=== PATIENT | male | born 1985 ===

== ENCOUNTER 2018-06-16 17:21 | Emergency (ER) | payer BC, OTHER ==
[2018-06-16 17:31] VITALS: BP 135/74
--- NOTE | 2018-06-16 17:43 | Emergency Department Report ---
Chief Complaint: Sore Throat Stated Complaint: POSSIBLE STREP Time Seen by Provider: 06/16/18 17:30 - HPI History of Present Illness: This is a 33 y.o. male that presents with sore throat for 1 week. Reports pain worse with swallowing or eating. He was going to PCP on Friday but reports pain is unbearable. He is using lozegens with no improvement of symptoms. He is able to hold liquids and food. Denies fever, cough, chest pain, or difficulty swallowing. - Exam Vital Signs: Vital Signs 06/16/18 17:30 Temperature 98.1 F Pulse Rate 94 H Respiratory 18 Rate Blood Pressure 135/74 O2 Sat by Pulse 98 Oximetry Physical Exam: GENERAL: The patient is well looking, in no acute distress. HEENT: Atraumatic and normocephalic. Pupils are equal, round, reactive to light, and accommodation. Extraocular movements are intact. There is no icterus, cyanosis, or pallor of the conjunctivae. Tympanic membranes normal bilaterally. Nasal turbinates are clear without exudates. Sinuses nontender to percussion. Posterior pharynx is erythematous. Uvula midline, no exudates are noted, and tonsils are not enlarged. CHEST: Air entry is adequate bilaterally with no rhonchi, and crackles. HEART: Sounds 1 and 2 are heard and are normal. Regular rate and rhythm, no tachycardic, murmurs, gallops, or rubs. ABDOMEN: Soft and nontender. Bowel sounds are present and normal. There is no hepatosplenomegaly. SKIN: Without rash. EXTREMITIES: Without edema, cyanosis, or clubbing. MSE screening note: Focused history and physical exam performed. Due to findings the following was ordered: ED Medical Decision Making - Lab Data Lab Results 06/16/18 Range/Units 17:21 Group A Strep Rapid Negative (Negative) - Medical Decision Making Patient was examined by me. Vitals are stable and in no acute distress. Rapid strep negative. Centor score 1 point. Findings are susceptible of acute pharyngitis. Start medrol dose pack and cephacol. Discharged home in stable condition. Discussed prevention options. F/U with PCP or Health Department. ED Disposition for MSE Clinical Impression: Sore throat (viral) Pharyngitis Qualifiers: Pharyngitis/tonsillitis etiology: unspecified etiology Qualified Code(s): J02.9 - Acute pharyngitis, unspecified Disposition: DC-01 TO HOME OR SELFCARE Is pt being admited?: No Does the pt Need Aspirin: No Condition: Stable Instructions: Pharyngitis (ED) Additional Instructions: Increase fluid intake. Wash hands frequently. This is a viral infection. You may have symptoms for 1-2 weeks. Complete full course of steroids as pre scribed. Follow up with a primary care provider if symptoms don't improve as discussed. Return to the ER if fever, chest pain, shortness of breath, or difficulty swallowing. Prescriptions: Benzocaine/Mentho [Cepacol X Strength] 8 each MM Q2H PRN #2 packet PRN Reason: Sore Throat methylPREDNISolone [Medrol] 4 mg PO DAILY #1 tab.[id number] [facility] [Outside] - 3-5 Days [facility] [Outside] - 3-5 Days Forms: Work/School Release Form(ED) Time of Disposition: 18:48
== END 2018-06-16 19:01 | disposition home or self-care (01) ==
LOC: ED 17:21
DX: J02.9 Acute pharyngitis, unspecified (principal)
CPT/HCPCS: 87116; 87430; 99282